=== PATIENT | male | born 1990 | race Caucasian/White ===

== ENCOUNTER 2021-03-12 13:35 | Emergency (ER) | payer OTHER ==
[~2021-03-12] VITALS: Ht 170.2 cm; Wt 88.0 kg
[2021-03-12] MEDS ORDERED: ACET-683 PO (13:47)
[2021-03-12] MEDS ORDERED: KETOROLAC 60MG 2ML VIAL IM ONE (14:35)
[2021-03-12] MEDS ORDERED: AUGM875T28 PO (15:31)
[2021-03-12] MEDS ORDERED: PROV108A INH (15:31)
[2021-03-12] MEDS ORDERED: PRED20TA PO (15:31)
[2021-03-12 16:12] VITALS: BP 122/63
== END 2021-03-12 16:13 | disposition home or self-care (01) ==
LOC: M ED 13:35
DX: J01.90 Acute sinusitis, unspecified (principal); R06.2 Wheezing
CPT/HCPCS: 70486; 71046; 96372; 99283; J1885